=== PATIENT | female | born 1950 | race Caucasian/White ===

== ENCOUNTER → 2023-09-14 10:36 | Outpatient (REF) | payer OTHER, SELFPAY | LOC: HWRAD 10:36 | PROVIDERS: ATTENDING PHYSICIAN Internal Medicine Hematology & Oncology; FAMILY PHYSICIAN Family Medicine | DX: C50.912 Malignant neoplasm of unspecified site of left female breast (principal) | CPT/HCPCS: 71260; Q9967 ==

== ENCOUNTER → 2024-03-20 10:06 | Outpatient (REF) | payer OTHER, SELFPAY | LOC: HWWDC 10:06 | PROVIDERS: ATTENDING PHYSICIAN Family Medicine | DX: Z12.31 Encounter for screening mammogram for malignant neoplasm of breast (principal) | CPT/HCPCS: 77063; 77067 ==

== ENCOUNTER → 2024-08-28 10:53 | Outpatient (REF) | payer OTHER, SELFPAY | LOC: RAD 10:53 | PROVIDERS: ATTENDING PHYSICIAN Internal Medicine Hematology & Oncology; FAMILY PHYSICIAN Family Medicine | DX: C50.912 Malignant neoplasm of unspecified site of left female breast (principal); C79.51 Secondary malignant neoplasm of bone; C56.9 Malignant neoplasm of unspecified ovary | CPT/HCPCS: 71260; Q9967 ==

== ENCOUNTER 2024-11-26 11:50 | Emergency (ER) | payer OTHER, SELFPAY ==
[2024-11-26 11:54] VITALS: BMI 34.1
[2024-11-26 11:56] VITALS: BP 183/98
--- NOTE | 2024-11-26 12:44 | ED.GENMED ---
History of Present Illness
General
Chief Complaint: Fall
Source: patient
Exam Limitations: none
Time Seen by Provider: 11/26/24 12:07
Nursing documentation reviewed up to this point in time: agreed with
History of Present Illness
History of Present Illness:
74-year-old female past ministry of stroke IBS presenting to the emergency department today after a fall where she tripped over her nightgown this was 2 days ago. Mainly in her right low back ongoing pain since some difficulty ambulating due to the
pain. Took Tylenol at home without relief. Denies urinary changes bowel movement changes numbness or weakness into the extremities. Denies any head pain or neck pain. Not on blood thinners.
Past History
Past History
ED Past Medical History: None
ED Past Surgical History:
Review of Systems
Review of Systems
Allergies reviewed?: Yes
All Other Systems: ROS reviewed and negative except as documented in HPI and ROS
Phy Exam
Physical Exam
Physical Exam:
GENERAL: Alert , in no apparent distress
EYE: pupils equal and reactive
NECK: Supple, no significant adenopathy.
ENT: o/p clr, mmm.
CARDIAC: Regular rate and rhythm .
LUNGS: Clear breath sounds bilaterally, no acute respiratory distress, no wheezes/rales/rhonchi
ABDOMEN: Soft, without focal tenderness, no r/g, no cvat
NEUROLOGICAL: Alert and oriented, no focal neuro deficits
SKIN: Warm and dry, skin intact.
MUSCULOSKELETAL: Vague discomfort throughout the right sided flank and low back region no midline pain no specific CVA tenderness some mild swelling to the area no obvious ecchymosis, no edema, well perfused.
PSYCH: Normal and appropriate interaction.
Course
Orders/Labs/Results
Orders:
Orders
11/26/24 12:39
CT Abd/pel Without Iv Or Oral Urgent
Comment:
Reason For Exam: right flank pain
Ketorolac [Toradol] 15 mg IM NOW STA
11/26/24 13:53
Oxycodone/Acetaminophen [Percocet 5/325] 1 tablet PO NOW STA
11/26/24 15:14
Urinalysis Reflex To Culture Urgent
Date Specimen was Collected: 11/26/24
Time Specimen was Collected: 14:12
Urine Microscopic Reflex Cult Urgent
11/26/24 15:38
Ketorolac [Toradol] 15 mg IM NOW STA
Oxycodone/Acetaminophen [Percocet 5/325] 1 tablet PO NOW STA
Abnormal Lab Results
11/26/24
15:14
Urine Ketones 3+ A
(Negative)
Ur Occult Blood Reflex 1+ A
(Negative)
Urine RBC 3-6 A /HPF
(0-2)
Urine Bacteria (Reflex) Few A
(Negative)
Urine Albumin (Reflex) 1+ A
(Neg - Trace)
Vital Signs
Initial and Last Documented VS:
Initial Vital Signs
Temp Pulse Resp BP Pulse Ox
98.2 F 75 20 183/98 95
11/26/24 11:56 11/26/24 11:56 11/26/24 11:56 11/26/24 11:56 11/26/24 11:56
Last Documented Vital Signs
Temp Pulse Resp BP Pulse Ox
98.2 F 75 20 164/70 93
11/26/24 11:56 11/26/24 11:56 11/26/24 11:56 11/26/24 16:00 11/26/24 16:00
MDM/Problems Addressed
MDM/Problems Addressed:
74-year-old female presenting to the emergency department today with concerns of right low back pain after slip and fall 2 days ago. Ongoing pain since able to urinate well no changes in bowel movements no numbness or weakness. Patient was given
Percocet as well as Toradol here with improvement of symptoms able to ambulate. No neurologic symptoms case discussed with neurosurgery recommending TLSO brace and otherwise outpatient follow-up. Stable for discharge at this time. Return
precautions given.
*Pulse Oximetry
SaO2: 94
Oxygen Mode of Delivery: Room air
Patient hypoxic: no (93)
*Critical Care Note
Total Time (30-74mins, 75-104mins- exclusive of procedures): Not Applicable
ED Attending Note
-
Portions of this chart may have been created with voice recognition software.� Occasional wrong word or��sound alike� substitutions may have occurred due to the inherent limitations of voice recognition software.
Discharge Plan
Departure
Patient Disposition: Home (Routine Discharge)
Date of Disposition: 11/26/24
Time of Disposition: :17
Patient with high blood pressure during this ER visit?: No
Condition: Good
Covid-19: Not Applicable
Discharge Problem:
Compression fx, lumbar spine
Instructions: TLSO and LSO, Vertebral Compression Fracture ED
Prescriptions:
New
meloxicam 15 mg tablet
15 mg PO DAILY 7 Days Qty: 7 0RF
oxycodone-acetaminophen [Percocet] 5-325 mg tablet
1 tab PO Q8H PRN (Reason: Pain) Qty: 10 0RF
No Action
paroxetine HCl 10 MG tablet
10 mg PO DAILY
B12
1,000 mcg PO DAILY
cholecalciferol (vitamin D3) [D3-2000] 50 mcg (2,000 unit) Capsule
50 mcg PO DAILY
biotin 1 mg Capsule
1 mg PO DAILY
Women's Multi
1 tab PO DAILY
calcium
500 mg PO DAILY
Elderberry Zinc Vit C 90-15 mg Lozenge
1 debora PO DAILY AT 0700
Referrals:
Khushboo Liu MD [Active, Neurosurgery] - Call in 1-3 days for appt
Chava Holliday MD [Family Provider, Family Practice]
Activity Restrictions/Additional Instructions:
You came to the emergency department today with concerns of low back pain you are found to have a lumbar compression fracture. Please follow-up closely with the back doctor and use the TLSO brace. Return for any worsening, new or concerning
symptoms. Please be careful with medications as these can cause drowsiness.
Interventions
Interventions:
*Risk Screen - Suicide Last Done: 11/26/24 12:00
*General Assessment Last Done: 11/26/24 12:00
*Neglect/Abuse Screening Last Done: 11/26/24 12:00
*ED- Fall Risk Assessment Last Done: 11/26/24 11:55
*ED COVID-19 Vaccine History Last Done: 11/26/24 11:55
ED-Musculoskeletal Assessment Last Done: 11/26/24 12:02
ED- Neurological Assessment Last Done: 11/26/24 12:02
ED-Skin Assessment Last Done: 11/26/24 12:02
Discharge Date and Time
Print Language: [id number]
[2024-11-26] MEDS: TORADOL 15 MG IM ×2 (12:47→15:45)
[2024-11-26 13:00] VITALS: BP 184/86
[2024-11-26] MEDS: PERCOCET 5/325 1 TABLET PO ×2 (13:55→15:45)
[2024-11-26 14:00] VITALS: BP 190/77
[2024-11-26 15:00] VITALS: BP 161/87
[2024-11-26 15:22] LABS: Urine Character Clear (Clear)
[2024-11-26 15:26] LABS: Urine Squamous Cell 0-2 /LPF (Few)
[2024-11-26 16:00] VITALS: BP 164/70
== END 2024-11-26 17:42 | disposition home or self-care (01) ==
LOC: EMR 11:50
PROVIDERS: Physician Assistant; EMERGENCY PHYSICIAN Emergency Medicine; FAMILY PHYSICIAN Family Medicine
DX: M48.56XA Collapsed vertebra, not elsewhere classified, lumbar region, initial encounter for fracture (principal); W01.0XXA Fall on same level from slipping, tripping and stumbling without subsequent striking against object, initial encounter; K58.9 Irritable bowel syndrome, unspecified; Z86.73 Personal history of transient ischemic attack (TIA), and cerebral infarction without residual deficits
CPT/HCPCS: 99284; 96372 ×2; 74176; 81003; 81015

== ENCOUNTER → 2025-03-21 10:08 | Outpatient (REF) | payer OTHER, SELFPAY | LOC: HWWDC 10:08 | PROVIDERS: ATTENDING PHYSICIAN Family Medicine | DX: Z12.31 Encounter for screening mammogram for malignant neoplasm of breast (principal) | CPT/HCPCS: 77063; 77067 ==

== ENCOUNTER → 2025-04-03 10:06 | Outpatient (REF) | payer OTHER, SELFPAY | LOC: HWRAD 10:06 | PROVIDERS: ATTENDING PHYSICIAN Family Medicine | DX: M80.00XD Age-related osteoporosis with current pathological fracture, unspecified site, subsequent encounter for fracture with routine healing (principal); Z12.31 Encounter for screening mammogram for malignant neoplasm of breast; F33.1 Major depressive disorder, recurrent, moderate; E78.2 Mixed hyperlipidemia; F33.9 Major depressive disorder, recurrent, unspecified | CPT/HCPCS: 77080 ==